=== PATIENT | male | born 1960 | race Caucasian/White ===

== ENCOUNTER 2019-10-30 19:36 | Emergency (ER) | payer SELFPAY ==
[~2019-10-30] VITALS: Ht 172.7 cm; Wt 62.0 kg
[2019-10-30] MEDS ORDERED: SILVER SULFADIAZINE 1% CREAM 50GM TOP SCH (21:00)
[2019-10-30 21:47] VITALS: BP 169/80
== END 2019-10-30 21:52 | disposition home or self-care (01) ==
LOC: ER 19:36
DX: T22.251A Burn of second degree of right shoulder, initial encounter (principal); X98.1XXA Assault by hot tap water, initial encounter; Y93.89 Activity, other specified; Y92.018 Other place in single-family (private) house as the place of occurrence of the external cause
CPT/HCPCS: 99283